=== PATIENT | male | born 1980 | race Caucasian/White ===

== ENCOUNTER → 2017-01-20 | Outpatient (CLI) | payer OTHER ==
--- NOTE | 2017-01-20 19:53 | DI ---
XR ELBOW COMPLETE MIN 3VW,01/20/2017 4:55 PM: Clinical History: Right elbow pain. Previous Exam: None at this facility. Findings: 3 views of the right elbow are obtained, and demonstrate anatomic alignment without fractures. Surrou nding soft tissues are unremarkable. There is mild enthesopathy noted at the insertion of the triceps tendon. Impression: No fracture.
== END ==
LOC: MOB RAD 16:55
DX: M25.521 Pain in right elbow (principal); M77.8 Other enthesopathies, not elsewhere classified
CPT/HCPCS: 73080